=== PATIENT | female | born 1975 | race Caucasian/White ===

== ENCOUNTER 2018-09-11 12:57 | Outpatient (CLI) | payer OTHER | END 2018-09-11 13:11 | disposition home or self-care (01) | LOC: MAMO-SONO 12:57 | DX: Z12.31 Encounter for screening mammogram for malignant neoplasm of breast (principal); N64.4 Mastodynia; N60.11 Diffuse cystic mastopathy of right breast; N63.10 Unspecified lump in the right breast, unspecified quadrant; N63.20 Unspecified lump in the left breast, unspecified quadrant ==

== ENCOUNTER 2020-12-07 10:55 | Outpatient (CLI) | payer OTHER | END 2020-12-07 11:13 | disposition home or self-care (01) | LOC: MAMO-SONO 10:55 | PROVIDERS: ATTEND Obstetrics & Gynecology Maternal & Fetal Medicine | DX: N63 Unspecified lump in breast (principal); Z12.31 Encounter for screening mammogram for malignant neoplasm of breast; N64.4 Mastodynia; N60.11 Diffuse cystic mastopathy of right breast ==

== ENCOUNTER 2022-11-12 13:40 | Emergency (ER) | payer OTHER ==
[~2022-11-12] VITALS: Ht 160 cm; Wt 55.8 kg
[2022-11-12] MEDS ORDERED: MEDROLPACK PO (17:22)
[2022-11-12] MEDS ORDERED: 8HR ARTHRITIS650 M1 PO (17:22)
[2022-11-12] MEDS ORDERED: CELEBREX200MG PO (17:22)
== END 2022-11-12 17:27 | disposition home or self-care (01) ==
LOC: ER 13:40
DX: M94.0 Chondrocostal junction syndrome [Tietze] (principal); R07.89 Other chest pain

== ENCOUNTER 2023-05-25 14:59 | Emergency (ER) | payer OTHER ==
[~2023-05-25] VITALS: Ht 152.4 cm; Wt 56.7 kg
[~2023-05-25 14:59] MED LIST: 8HR ARTHRITIS650 M1 PO; CELEBREX200MG PO; MEDROLPACK PO
== END 2023-05-25 16:41 | disposition home or self-care (01) ==
LOC: ER 15:00
DX: S92.355A Nondisplaced fracture of fifth metatarsal bone, left foot, initial encounter for closed fracture (principal); W18.30XA Fall on same level, unspecified, initial encounter; Y93.9 Activity, unspecified; Y92.9 Unspecified place or not applicable; Y99.9 Unspecified external cause status

== ENCOUNTER 2023-07-22 14:38 | Emergency (ER) | payer OTHER ==
[~2023-07-22] VITALS: Ht 152.4 cm; Wt 55.3 kg
== END 2023-07-22 19:00 | disposition home or self-care (01) ==
LOC: ER 14:38
DX: J06.9 Acute upper respiratory infection, unspecified (principal)

== ENCOUNTER 2023-10-09 14:40 | Outpatient (CLI) | payer OTHER | END 2023-10-09 14:46 | disposition home or self-care (01) | LOC: MAMO-SONO 14:40 | PROVIDERS: ATTEND Obstetrics & Gynecology | DX: N60.11 Diffuse cystic mastopathy of right breast (principal); R10.2 Pelvic and perineal pain ==